=== PATIENT | male | born 1950 | race Caucasian/White ===

== ENCOUNTER 2020-12-28 09:39 | Day surgery (SDC) | payer MEDICARE ==
[~2020-12-28] VITALS: Ht 190.5 cm; Wt 99.0 kg
[2020-12-28] MEDS ORDERED: WARF-36 PO (10:31)
[2020-12-28] MEDS ORDERED: WARF2.5T32 PO (10:33)
[2020-12-28] MEDS ORDERED: AMIO100T4 PO (10:34)
[2020-12-28] MEDS ORDERED: LISI1TAB23 PO (10:35)
[2020-12-28] MEDS ORDERED: DILT90TA PO (10:35)
[2020-12-28] MEDS ORDERED: DILT-86 PO (10:36)
[2020-12-28 10:37] VITALS: BP 131/76
[2020-12-28 11:02] LABS: INTERNATIONAL NORMALIZED RATIO 3.25 (0.93-1.1)
[2020-12-28 11:04] LABS: ANION GAP 6 mmol/L (5-15); CALCIUM 8.7 mg/dL (8.5-10.1); CHLORIDE 106 mmol/L (98-107); CREATININE 1.11 mg/dL (0.7-1.3)
== END 2020-12-28 13:09 | disposition home or self-care (01) ==
LOC: CACL 09:39
PROVIDERS: ATTEND Internal Medicine Cardiovascular Disease
DX: I48.0 Paroxysmal atrial fibrillation (principal); I48.92 Unspecified atrial flutter; I34.0 Nonrheumatic mitral (valve) insufficiency; I10 Essential (primary) hypertension; Z20.822 Contact with and (suspected) exposure to COVID-19; Z79.01 Long term (current) use of anticoagulants; Z79.899 Other long term (current) drug therapy; Z87.891 Personal history of nicotine dependence
CPT/HCPCS: 36415; 80048; 85610; 87635; 92960; 93312; 93321; 93325

== ENCOUNTER → 2021-01-18 | Outpatient (CLI) | payer MEDICARE ==
[~2021-01-18] MED LIST: AMIO100T4 PO; DILT-86 PO; DILT90TA PO; LISI1TAB23 PO; WARF-36 PO; WARF2.5T32 PO
== END | disposition home or self-care (01) ==
LOC: CFH 12:46
PROVIDERS: ATTEND Internal Medicine Cardiovascular Disease
DX: I08.8 Other rheumatic multiple valve diseases (principal); I48.91 Unspecified atrial fibrillation; E78.5 Hyperlipidemia, unspecified; I11.9 Hypertensive heart disease without heart failure; Z87.891 Personal history of nicotine dependence
CPT/HCPCS: 93306